=== PATIENT | female | born 1955 | race Caucasian/White ===

== ENCOUNTER 2024-06-12 09:22 | Emergency (ER) | payer MEDICARE, BC ==
[~2024-06-12] VITALS: Ht 167.6 cm; Wt 67.1 kg
[~2024-06-12 09:22] MED LIST: DEXT5TAB PO; LAMO150T6 PO
[2024-06-12] MEDS: IV NORMAL SALINE 1000 ML BAG IV ONE (10:08)
[2024-06-12 10:21] LABS: BASOPHILS % (AUTO) 0.3 % (0.0-2.0); EOSINOPHILS # (AUTO) 0.1 K/uL (0.0-0.7); EOSINOPHILS % (AUTO) 1.3 % (0.0-7.0); HEMATOCRIT 42.4 % (31.2-41.9); HEMOGLOBIN 14.3 g/dL (10.9-14.3); LYMPHOCYTES # (AUTO) 1.5 K/uL (0.8-4.8); LYMPHOCYTES % (AUTO) 26.8 % (20.5-51.5); MEAN CORPUSCULAR HEMOGLOBIN 30.7 uug (24.7-32.8); MEAN CORPUSCULAR HGB CONC 34 g/dL (32.3-35.6); MEAN CORPUSCULAR VOLUME 91.4 fL (75.5-95.3); MONOCYTES # (AUTO) 0.4 K/uL (0.1-1.30); NEUTROPHILS # (AUTO) 3.6 K/uL (1.8-8.9); NEUTROPHILS % (AUTO) 64.6 % (38.5-71.5); PLATELET COUNT (AUTO) 180 K/uL (179-408); RED BLOOD CELL COUNT(AUTO) 4.64 MIL/uL (3.63-4.92); RED CELL DISTRIBUTION WIDTH 13.3 % (12.3-17.7); WHITE BLOOD COUNT (AUTO) 5.6 K/uL (3.8-11.8)
[2024-06-12 10:25] LABS: DIFFERENTIAL COMMENT 1
[2024-06-12 10:42] LABS: CALCIUM 7.7 mg/dL (8.5-10.1); CREATININE 0.9 mg/dL (0.6-1.3); POTASSIUM 4.1 mmol/L (3.5-5.1)
[2024-06-12] MEDS ORDERED: ONDANSETRON 4 MG/2 ML VIAL ONE (10:43)
[2024-06-12 10:44] LABS: *BILIRUBIN,URIN NEGATIVE (NEGATIVE); *BLOOD, URINE 1+ (NEGATIVE); *CLARITY,URINE CLEAR (CLEAR); *COLOR,URINE YELLOW (YELLOW); *KETONES,URINE NEGATIVE (NEGATIVE); *PROTEIN,URINE 1+ (NEGATIVE); *UROBILINOGEN,URINE 0.2 E.U./dl (NORMAL); LEUKOCYTE ESTERASE ,URINE 1+ (NEGATIVE); NITRITE, URINE POSITIVE (NEGATIVE); PH,URINE 5.5 (5.0-8.0); UGLUCOSE NEGATIVE (NEGATIVE)
[2024-06-12] MEDS: ONDANSETRON 4 MG/2 ML VIAL IV ONE (10:45)
[2024-06-12 10:51] LABS: ALBUMIN 3.9 g/dL (3.4-5.0); BILIRUBIN,DIRECT 0.2 mg/dL (0.0-0.2); BILIRUBIN,TOTAL 0.7 mg/dL (0.2-1.0); TOTAL PROTEIN, SERUM 7.3 g/dL (6.4-8.2)
[2024-06-12 11:08] LABS: BACTERIA,URINE MODERATE /HPF (NONE SEEN); SQUAMOUS EPITHELIAL CELL,UR MODERATE /HPF (NONE SEEN)
[2024-06-12] MEDS ORDERED: CEFTRIAXONE /D5W 50ML IVPB **ER PYXIS IV ONE (11:34)
[2024-06-12] MEDS: CEFTRIAXONE 1 G in IV DEXTROSE 5% 50 ML IV ONE (11:42)
[2024-06-12] MEDS: IV LACTATED RINGERS SOLUTION 1,000 ML BAG IV ONE (11:42)
[2024-06-12] MEDS ORDERED: ONDA4TAB11 PO (11:53)
[2024-06-12] MEDS ORDERED: LOPE2TAB25 PO (11:53)
[2024-06-12] MEDS ORDERED: SULF1TAB48 PO (11:53)
[2024-06-12 13:14] VITALS: BP 119/63; O2SAT 100
== END 2024-06-12 12:40 | disposition home or self-care (01) ==
LOC: ER 09:22
DX: R19.7 Diarrhea, unspecified (principal); N39.0 Urinary tract infection, site not specified; E86.0 Dehydration; E78.5 Hyperlipidemia, unspecified
CPT/HCPCS: 99284; 96365; 96361; 80076; 80048; 81001; 83690; 85025; 89055; 36415; 87086; J0696; J2405; J7120; J7040; A4606; A4663